=== PATIENT | male | born 1975 ===

== ENCOUNTER 2018-11-12 22:44 | Emergency (ER) | payer SELFPAY | END 2018-11-13 00:17 | disposition home or self-care (01) | LOC: BURERS 22:44 | DX: T63.441A Toxic effect of venom of bees, accidental (unintentional), initial encounter (principal) | CPT/HCPCS: 96360 ==

== ENCOUNTER 2018-11-13 02:24 | Emergency (ER) | payer SELFPAY ==
[2018-11-13] MEDS ORDERED: Lorazepam 2 MG/ML VIAL ONE (02:41)
[2018-11-13 02:47] LABS: #Lymphocytes 0.9 thou/uL (1.20-3.40); #Neutrophils 6.2 thou/uL (1.40-6.50); %Basophils 0.7 % (0.0-1.0); %Eosinophils 0.1 % (0.0-10.0); %Lymphocytes 12.5 % (21.0-51.0); %Monocytes 0.3 % (0.0-10.0); %Neutrophils 86.5 % (42.0-75.0); Hemoglobin 14.9 g/dL (14.0-18.0); Mean Corpuscular HGB CONC 32.5 g/dL (32.0-36.0); Mean Corpuscular Hemoglobin 31.1 pg (27.0-31.0); Mean Corpuscular Volume 95.6 fL (78.0-98.0); Mean Platelet Volume 6.1 fL (7.4-10.4); Platelet Count 405 thou/uL (130-400); RBC Distribution Width 11.1 % (11.5-14.5); White Blood Cell (WBC) Count 7.2 thou/uL (4.8-10.8)
[2018-11-13 03:00] LABS: ALT (SGPT) 23 U/L (8-55); AST (SGOT) 23 U/L (5-34); Albumin 4.5 g/dL (3.5-5.0); Alkaline Phosphatase 66 U/L (40-150); Anion Gap 20 mmol/L (10-20); BUN (Urea Nitrogen) 10 mg/dL (8.9-20.6); Bilirubin, Total Less than 0.2 mg/dL (0.2-1.2); Calc. Creatinine Clearance 0 mL/min (70-130); Calcium 9.6 mg/dL (7.8-10.44); Carbon Dioxide 22 mmol/L (22-29); Chloride 111 mmol/L (98-107); Estimated GFR-MDRD 75; Globulin 3.2 g/dL (2.4-3.5); Glucose 101 mg/dL (70-105); Potassium 4.3 mmol/L (3.5-5.1); Protein, Total 7.7 g/dL (6.0-8.3); Sodium 149 mmol/L (136-145)
[2018-11-13 03:01] LABS: Acetaminophen Less than 6.0 mcg/mL (10.0-30.0); Alcohol 282 mg/dL (Less than 10); Salicylate Less than 8.0 mg/dL (15.0-30.0)
--- NOTE | 2018-11-13 07:21 | CT ---
PRELIMINARY REPORT/[facility]/EMERGENCY AFTER HOURS PROCEDURE: EXAM: CT Head Without Contrast EXAM DATE/TIME: 11/13/2018 2:53 AM CLINICAL HISTORY: 43 years old, male; Altered mental status/memory loss; Patient HX: Seizure TECHNIQUE: Imaging protocol: Axial computed tomography images of the head without contrast. COMPARISON: No relevant prior studies available. FINDINGS: Brain: Normal. No hemorrhage. Unremarkable white matter. No mass effect. Ventricles: Normal. No ventriculomegaly. Bones/joints: Unremarkable. No acute fracture. Sinuses: Visualized sinuses are unremarkable. No fluid levels. Mastoid air cells: Visualized mastoid air cells are well aerated. No mastoid effusion. Soft tissues: Unremarkable. IMPRESSION: No acute intracranial abnormality. Thank you for allowing us to participate in the care of your patient. Dictated and Authenticated by: Judson Omer MD 11/13/2018 3:41 AM Central Time ([place] & [place]) FINAL REPORT CT OF THE BRAIN WITHOUT CONTRAST: DATE: 11/13/2018. FINDINGS: A noncontrast CT was done for evaluation of altered mental status and memory loss. The ventricles ar e normal in size with no shift. No intracranial bleeding, mass, or sign of stroke was found. The sk ull is normal in appearance. The visible paranasal sinuses and mastoid air cells are clear. There m ight be a small polyp or cyst in the left middle ethmoid air cells. IMPRESSION: No acute intracranial findings. Report in agreement with preliminary reading by Miguel. POS: HOME
== END 2018-11-13 08:16 | disposition home or self-care (01) ==
LOC: BURERS 02:24
DX: G40.409 Other generalized epilepsy and epileptic syndromes, not intractable, without status epilepticus (principal); Z79.899 Other long term (current) drug therapy
CPT/HCPCS: 70450; 80053; 80307; 85025; 96361; 96374; J2060